=== PATIENT | female | born 1985 | race American Indian/Alaskan Native ===

== ENCOUNTER 2020-08-15 11:48 | Outpatient (CLI) | payer MEDICAID ==
[2020-08-15] MEDS ORDERED: LACTATED RINGERS 500 ML IV ONE (12:30)
[2020-08-15 12:56] VITALS: BP 126/71
[2020-08-15] MEDS ORDERED: TERBUTALINE 1 MG/1 ML INJ ONE (13:51)
[2020-08-15] MEDS ORDERED: TERBUTALINE 1 MG/1 ML INJ SUB-Q ONE (14:05)
== END 2020-08-15 15:00 | disposition home or self-care (01) ==
LOC: TRG 11:48 → APU 12:08 → TRG 15:00
PROVIDERS: ATTEND Obstetrics & Gynecology
DX: O26.893 Other specified pregnancy related conditions, third trimester (principal); M54.9 Dorsalgia, unspecified; O47.1 False labor at or after 37 completed weeks of gestation; O09.523 Supervision of elderly multigravida, third trimester; Z3A.37 37 weeks gestation of pregnancy
CPT/HCPCS: 59025; 96372; J3105

== ENCOUNTER 2020-08-19 00:09 | Outpatient (CLI) | payer MEDICAID ==
[2020-08-19 00:58] VITALS: BP 111/59
[2020-08-19 01:44] LABS: Bilirubin,Urine NEG (Negative); Blood,Urine NEG (Negative); Color,Urine Yellow (Yellow); Mucus,Urine FEW /HPF; Protein,Urine <15 mg/dL mg/dL (Negative); Urobilinogen,Urine < 2.0 mg/dL (<2.0); WBC,Urine < 1.0 /HPF (0.0-6.0)
== END 2020-08-19 02:10 | disposition home or self-care (01) ==
LOC: TRG 00:09 → APU 00:45 → TRG 02:10
PROVIDERS: ATTEND Obstetrics & Gynecology
DX: O62.9 Abnormality of forces of labor, unspecified (principal); R10.30 Lower abdominal pain, unspecified; Z3A.37 37 weeks gestation of pregnancy
CPT/HCPCS: 59025; 81001

== ENCOUNTER 2020-08-20 21:27 | Outpatient (CLI) | payer MEDICAID ==
[2020-08-20 21:51] VITALS: BP 135/83
[2020-08-20] MEDS ORDERED: hydrOXYzine PAMOATE 25 MG CAP PO ONE (23:49)
== END 2020-08-21 00:04 | disposition home or self-care (01) ==
LOC: TRG 21:27 → APU 21:33 → TRG 08-21 00:04
PROVIDERS: ATTEND Obstetrics & Gynecology
DX: O62.4 Hypertonic, incoordinate, and prolonged uterine contractions (principal); O26.893 Other specified pregnancy related conditions, third trimester; R10.9 Unspecified abdominal pain; M54.5 Low back pain; Z3A.37 37 weeks gestation of pregnancy
CPT/HCPCS: 59025; Q0177

== ENCOUNTER 2020-08-30 11:26 | Inpatient (IN) | payer MEDICAID ==
[2020-08-30] MEDS ORDERED: ePHEDrine SULFATE 50 MG/1 ML INJ IV PRN ×2 (11:59→15:48)
[2020-08-30] MEDS ORDERED: BUTORPHANOL 2 MG/1 ML INJ IV PRN (11:59)
[2020-08-30] MEDS ORDERED: LIDOCAINE (2%) 20 MG/1 ML VIAL 20 ML MDV INFILTRATI ONE (11:59)
[2020-08-30] MEDS ORDERED: MINERAL OIL 30 ML ORAL LIQD PO PRN (11:59)
[2020-08-30] MEDS ORDERED: AMPICILLIN/NS 2 GM/100 ML 2 GM/100 ML BAG IV ONE (11:59)
[2020-08-30] MEDS ORDERED: TERBUTALINE 1 MG/1 ML INJ SUB-Q PRN (11:59)
[2020-08-30] MEDS ORDERED: OXYTOCIN DRIP 30 UNITS/500 ML BAG IV SCH ×2 (12:00→19:00)
--- NOTE | 2020-08-30 12:40 | History and Physical Report ---
History of Present Illness Date of examination: 08/30/20 Chief complaint: Contractions and "my water broke at 9:00 this morning." History of present illness: Early entry to care at 11 1/7 weeks to [facility]. course complicated by Advanced Maternal Age, anemia (on PO Ferrous Sulfate), and Chlamydia (treated on 04/27; negative MOLLY). History of shoulder dystocia with first delivery; baby sustained dislocated shoulder. Second delivery was vaginal without complications. Past History Past Medical History: no pertinent history Past Surgical History: no surgical history ADVANCED MANAGER History: chlamydia, other (mycoplasma infection) Family/Genetic History: diabetes (Aunt), hypertension (Maternal Grandmother, Aunt), cancer (Lung - Maternal Grandfather) Social history: no significant social history - Obstetrical History Expected Date of Delivery: 09/04/20 Actual Gestation: 39 Week(s) 2 Day(s) : 3 Para: 2 Hx # Term Pregnancies: 2 Number of Pregnancies: 0 Spontaneous Abortions: 0 Induced : 0 Number of Living Children: 2 #1 Gender: Male year: 2,[birth year] Birthweight: 3.714 kg Method of Delivery: Vaginal Gestational age at delivery: 40 Complications: other (shoulder dystocia; baby sustained dislocated shoulder) #2 Infant Gender: Female year: 2,[birth year] Birthweight: 2.863 kg Method of Delivery: Vaginal Gestational age at delivery: 38 Complications: none Medications and Allergies Allergies Allergy/AdvReac Type Severity Reaction Status Date / Time No Known Allergies Allergy Unverified 08/15/20 12:29 Active Meds: Active Medications Butorphanol Tartrate (Butorphanol 2 Mg/1 Ml Inj) 2 mg IV Q2H PRN PRN Reason: Pain , Severe (7-10) Ephedrine Sulfate (Ephedrine Sulfate 50 Mg/1 Ml Inj) 10 mg IV Q2M PRN PRN Reason: Hypotension Oxytocin/Sodium Chloride (Pitocin/Ns 30 Unit/500ml) 30 units in 500 mls @ 2 mls/hr IV TITR JENI; Protocol Lactated Ringer's (Lactated Ringers) 1,000 mls @ 125 mls/hr IV DIRECT JENI Ampicillin Sodium (Ampicillin/Ns 2 Gm/100 Ml) 2 gm in 100 mls @ 100 mls/hr IV ONCE ONE; Protocol Stop: 08/30/20 12:58 Ampicillin Sodium (Ampicillin/Ns 1 Gm/50 Ml) 1 gm in 50 mls @ 100 mls/hr IV Q4H JENI; Protocol Mineral Oil (Mineral Oil 30 Ml Oral Liqd) 30 ml PO QHS PRN PRN Reason: Constipation Terbutaline Sulfate (Terbutaline 1 Mg/1 Ml Inj) 0.25 mg SUB-Q ONCE PRN PRN Reason: Hyperstimulation/Hypertonicity Review of Systems All systems: negative - Physical Exam Breasts: Positive: normal Cardiovascular: Regular rate Lungs: Positive: Clear to auscultation, Normal air movement Abdomen: Positive: normal appearance, soft Genitourinary (Female): Positive: normal external genitalia, normal perenium Vagina: Positive: normal moisture Uterus: Positive: enlarged Anus/Rectum: Positive: hemorrhoids Extremities: Positive: normal - Obstetrical FHR: category 1 Uterine Contraction Monitor Mode: External Cervical Dilatation: 4 (per RN exam. Pt reports SROM at 09:00 today at home. Nitrizine test positive per RN. Leaking a small amount of clear fluid on exam.) Cervical Effacement Percentage: 80 station: -2 Uterine Contraction Frequency (min): 3 Uterine Contraction Duration: 60 Uterine Contraction Pattern: Regular Uterine Tone Measurement Phase: Resting Uterine Contraction Intensity: Moderate Results All other labs normal. Assessment and Plan A: IUP at 39 2/7 weeks Category I tracing Active Labor AMA GBS positive P: Admit to L&D per routine orders Expectant Management Prepare for Epidural GBS Prophylaxis
[2020-08-30] MEDS: LACTATED RINGERS 1,000 ML IV SCH ×2 (12:52→14:07)
[2020-08-30 13:33] LABS: Hematocrit 35.7 % (30.3-42.9); Mean Corpuscular HGB Conc 34 % (30-34); Mean Corpuscular Volume 90 fl (79-97); Platelet Count 170 K/mm3 (140-440); Red Blood Count 3.97 M/mm3 (3.65-5.03); Red Cell Distribution Width 14.3 % (13.2-15.2)
--- NOTE | 2020-08-30 15:45 | Anesthesia Consultation ---
Anesthesia Consult and Med Hx Date of service: 08/30/20 - Airway Anesthetic Teeth Evaluation: Good ROM Head & Neck: Adequate Mental/Hyoid Distance: Adequate Mallampati Class: Class II Intubation Access Assessment: Good - Pulmonary Exam CTA: Yes - Cardiac Exam Cardiac Exam: RRR - Pre-Operative Health Status ASA Pre-Surgery Classification: ASA2 Proposed Anesthetic Plan: Epidural - Pulmonary Hx Smoking: No Hx Asthma: No Hx Respiratory Symptoms: No SOB: No COPD: No Home Oxygen Therapy: No Hx Pneumonia: No Hx Sleep Apnea: No - Cardiovascular System Hx Hypertension: No Hx Coronary Artery Disease: No Hx Heart Attack/AMI: No Hx Angina: No Hx Percutaneous Transluminal Coronary Angioplasty (PTCA): No Hx Cardia Arrhythmia: No Hx Pacemaker: No Hx Internal Defibrillator: No Hx Valvular Heart Disease: No Hx Heart Murmur: No Hx Peripheral Vascular Disease: No - Central Nervous System Hx Neuromuscular Disorder: No Hx Seizures: No CVA: No Hx Back Pain: No Hx Psychiatric Problems: No - Gastrointestinal Hx Ulcer: No Hx Gastroesophageal Reflux Disease: Yes - Endocrine Hx Renal Disease: No Hx End Stage Renal Disease: No Hx Cirrhosis: No Hx Liver Disease: No Hx Insulin Dependent Diabetes: No Hx Non-Insulin Dependent Diabetes: No Hx Thyroid Disease: No Hx Hypothyroidism: No Hx Hyperthyroidism: No - Hematic Hx Anemia: No Hx Sickle Cell Disease: No - Other Systems Hx Alcohol Use: No Hx Substance Use: No Hx Cancer: No Hx Obesity: Yes
[2020-08-30] MEDS ORDERED: NALOXONE 2 MG/2 ML INJ IV PRN (15:48)
[2020-08-30] MEDS ORDERED: fentaNYL-BUPIV 2 MCG/ML-0.125% 200 MCG/100 ML BAG EPIDURAL SCH (16:00)
[2020-08-30] MEDS ORDERED: AMPICILLIN/NS 1 GM/50 ML 1 GM/50 ML BAG IV SCH (16:00)
[2020-08-30] MEDS ORDERED: FAMOTIDINE 20 MG/2 ML INJ IV ONE ×2 (16:50→16:53)
[2020-08-30] MEDS ORDERED: METOCLOPRAMIDE 10 MG/2 ML INJ IV ONE (16:50)
[2020-08-30] MEDS ORDERED: BICITRA ORAL LIQD 30ML ONE (16:52)
[2020-08-30] MEDS ORDERED: METOCLOPRAMIDE 10 MG/2 ML INJ ONE (16:53)
[2020-08-30] MEDS ORDERED: LIDOCAINE 2%/EPINEPHRINE 1:200,000 VIAL (20 ML) INFILTRATI ONE (16:53)
[2020-08-30] MEDS ORDERED: ceFAZolin/Water 2 GM/20 ML 2 GM/20 ML SYRINGE IV ONE (16:53)
--- NOTE | 2020-08-30 16:58 | Progress Note ---
Assessment and Plan A: IUP at 39 2/7 weeks Category II tracing SROM AMA GBS positive P: Pitocin Discontinued O2 Mask Internals x 2 Knee-Chest Maternal Positioning Dr. Sampson notified of Distress Prepare for Delivery by Subjective - Subjective Date of service: 08/30/20 (Called to bedside by RN due to bradycardia) Interval history: Early entry to care at 11 1/7 weeks to [facility]. co urse complicated by Advanced Maternal Age, anemia (on PO Ferrous Sulfate), and Chlamydia (treated on 04/27; negative MOLLY). History of shoulder dystocia with first delivery; baby sustained dislocated shoulder. Second delivery was vaginal without complications. Patient reports: movement normal, other (Resting Well Under Epidural) Objective - Vital Signs Vital Signs: Vital Signs - 12hr 08/30/20 08/30/20 08/30/20 12:37 12:42 12:47 Temperature Pulse Rate 88 84 89 Respiratory Rate Blood Pressure Blood Pressure [Right] O2 Sat by Pulse 97 100 99 Oximetry 08/30/20 08/30/20 08/30/20 12:50 12:52 12:57 Temperature Pulse Rate 83 82 87 Respiratory Rate Blood Pressure 122/79 Blood Pressure [Right] O2 Sat by Pulse 100 99 Oximetry 08/30/20 08/30/20 08/30/20 13:02 13:04 13:07 Temperature Pulse Rate 88 94 H 82 Respiratory Rate Blood Pressure Blood Pressure [Right] O2 Sat by Pulse 98 92 98 Oximetry 08/30/20 08/30/20 08/30/20 13:09 13:12 13:15 Temperature Pulse Rate 89 94 H 87 Respiratory Rate Blood Pressure Blood Pressure [Right] O2 Sat by Pulse 94 100 86 Oximetry 08/30/20 08/30/20 08/30/20 13:16 13:17 13:21 Temperature 98.3 F Pulse Rate 83 83 91 H Respiratory 18 Rate Blood Pressure Blood Pressure 122/79 [Right] O2 Sat by Pulse 98 100 93 Oximetry 08/30/20 08/30/20 08/30/20 13:22 13:23 13:27 Temperature Pulse Rate 92 H 94 H Respiratory 18 Rate Blood Pressure Blood Pressure [Right] O2 Sat by Pulse 98 98 Oximetry 08/30/20 08/30/20 08/30/20 13:32 13:37 13:39 Temperature Pulse Rate 87 86 85 Respiratory Rate Blood Pressure Blood Pressure [Right] O2 Sat by Pulse 98 98 92 Oximetry 08/30/20 08/30/20 08/30/20 13:42 13:47 13:52 Temperature Pulse Rate 89 97 H 92 H Respiratory Rate Blood Pressure Blood Pressure [Right] O2 Sat by Pulse 98 99 97 Oximetry 08/30/20 08/30/20 08/30/20 13:57 14:02 14:07 Temperature Pulse Rate 89 88 78 Respiratory Rate Blood Pressure Blood Pressure [Right] O2 Sat by Pulse 98 99 98 Oximetry 08/30/20 08/30/20 08/30/20 14:08 14:12 14:14 Temperature Pulse Rate 83 92 H 88 Respiratory Rate Blood Pressure 106/60 Blood Pressure [Right] O2 Sat by Pulse 92 94 93 Oximetry 08/30/20 08/30/20 08/30/20 14:17 14:19 14:22 Temperature Pulse Rate 70 76 79 Respiratory Rate Blood Pressure Blood Pressure [Right] O2 Sat by Pulse 90 92 99 Oximetry 08/30/20 08/30/20 08/30/20 14:23 14:27 14:30 Temperature Pulse Rate 73 Respiratory 18 Rate Blood Pressure Blood Pressure [Right] O2 Sat by Pulse 98 86 Oximetry 08/30/20 08/30/20 08/30/20 14:32 14:37 14:38 Temperature Pulse Rate 68 68 67 Respiratory Rate Blood Pressure 127/82 Blood Pressure [Right] O2 Sat by Pulse 99 87 Oximetry 08/30/20 08/30/20 08/30/20 14:42 14:45 14:48 Temperature Pulse Rate 77 58 L 35 L Respiratory Rate Blood Pressure Blood Pressure [Right] O2 Sat by Pulse 99 84 84 Oximetry 08/30/20 08/30/20 08/30/20 14:51 14:54 14:56 Temperature Pulse Rate 47 L 86 Respiratory Rate Blood Pressure 119/76 Blood Pressure [Right] O2 Sat by Pulse 87 89 Oximetry 08/30/20 08/30/20 08/30/20 14:57 14:59 15:04 Temperature Pulse Rate 83 97 H 81 Respiratory Rate Blood Pressure Blood Pressure [Right] O2 Sat by Pulse 94 96 96 Oximetry 08/30/20 08/30/20 08/30/20 15:05 15:08 15:10 Temperature Pulse Rate 80 85 72 Respiratory Rate Blood Pressure 124/84 Blood Pressure [Right] O2 Sat by Pulse 91 96 Oximetry 08/30/20 08/30/20 08/30/20 15:11 15:15 15:17 Temperature Pulse Rate 72 101 H 120 H Respiratory Rate Blood Pressure 109/52 Blood Pressure [Right] O2 Sat by Pulse 94 99 93 Oximetry 08/30/20 08/30/20 08/30/20 15:20 15:24 15:25 Temperature Pulse Rate 89 104 H 111 H Respiratory Rate Blood Pressure Blood Pressure [Right] O2 Sat by Pulse 92 94 97 Oximetry 08/30/20 08/30/20 08/30/20 15:30 15:31 15:35 Temperature Pulse Rate 99 H 106 H 80 Respiratory Rate Blood Pressure Blood Pressure [Right] O2 Sat by Pulse 97 83 L 95 Oximetry 08/30/20 08/30/20 08/30/20 15:38 15:40 15:45 Temperature Pulse Rate 94 H 103 H 83 Respiratory Rate Blood Pressure 100/61 Blood Pressure [Right] O2 Sat by Pulse 100 98 Oximetry 08/30/20 08/30/20 08/30/20 15:48 15:50 15:53 Temperature Pulse Rate 94 H 48 L Respiratory Rate Blood Pressure Blood Pressure [Right] O2 Sat by Pulse 90 88 78 L Oximetry 08/30/20 08/30/20 08/30/20 15:55 16:00 16:05 Temperature Pulse Rate 97 H 109 H 75 Respiratory Rate Blood Pressure Blood Pressure [Right] O2 Sat by Pulse 91 93 100 Oximetry 08/30/20 08/30/20 08/30/20 16:08 16:10 16:14 Temperature Pulse Rate 89 99 H Respiratory Rate Blood Pressure 109/67 Blood Pressure [Right] O2 Sat by Pulse 94 98 84 Oximetry 08/30/20 08/30/20 08/30/20 16:17 16:20 16:23 Temperature Pulse Rate 95 H 74 Respiratory Rate Blood Pressure Blood Pressure [Right] O2 Sat by Pulse 82 L 93 87 Oximetry 08/30/20 08/30/20 08/30/20 16:26 16:30 16:36 Temperature Pulse Rate 84 60 141 H Respiratory Rate Blood Pressure Blood Pressure [Right] O2 Sat by Pulse 80 L 100 100 Oximetry 08/30/20 08/30/20 08/30/20 16:39 16:41 16:42 Temperature Pulse Rate 151 H 75 78 Respiratory Rate Blood Pressure 82/51 75/47 Blood Pressure [Right] O2 Sat by Pulse 100 Oximetry 08/30/20 16:46 Temperature Pulse Rate 100 H Respiratory Rate Blood Pressure Blood Pressure [Right] O2 Sat by Pulse 100 Oximetry - Exam Breasts: normal Abdomen: Present: normal appearance, soft Uterus: Present: normal, firm, fundal height above umbilicus FHR: category 2 Uterine Contraction Monitor Mode: Internal Cervical Dilatation: 4 (leaking a small amount of clear fluid) Cervical Effacement Percentage: 70 station: -2 Uterine Contraction Pattern: Regular Uterine Tone Measurement Phase: Resting Uterine Contraction Intensity: Moderate Extremities: normal - Labs Labs: Laboratory Results - last 24 hr 08/30/20 08/30/20 12:12 12:12 WBC 10.4 RBC 3.97 Hgb 12.0 Hct 35.7 MCV 90 MCH 30 MCHC 34 RDW 14.3 Plt Count 170 Blood Type A POSITIVE Antibody Screen Negative
[2020-08-30] MEDS ORDERED: ONDANSETRON 4 MG/2 ML INJ ONE (17:06)
[2020-08-30] MEDS ORDERED: PHENYLEPHRINE/NS 1,000 MCG/10 ML SYRINGE (OR USE) IV ONE ×2 (17:16→18:20)
[2020-08-30] MEDS ORDERED: ceFAZolin/STERILE WATER 2 GM/20 ML SYRINGE IV ONE (17:17)
[2020-08-30] MEDS ORDERED: WATER FOR IRRIG STERILE 1,500 ML BOTTLE IR ONE (17:29)
[2020-08-30] MEDS ORDERED: SODIUM CHLORIDE 0.9% IRR 1,500 ML BOTTLE IR ONE (17:29)
[2020-08-30] MEDS ORDERED: dexAMETHasone 20 MG/5 ML VIAL ONE (17:39)
[2020-08-30] MEDS ORDERED: BUPIVACAINE/PF (0.5%) 5 MG/1 ML 30 ML VIAL INFILTRATI ONE (17:39)
[2020-08-30] MEDS ORDERED: SODIUM CHLORIDE 0.9% 100 ML ONE (17:41)
[2020-08-30] MEDS ORDERED: KETOROLAC 30 MG/1 ML INJ ONE (18:04)
[2020-08-30] MEDS ORDERED: WITCH HAZEL/ GLYCERIN PAD TP PRN (18:14)
[2020-08-30] MEDS ORDERED: NALOXONE 0.4 MG/1 ML INJ IV PRN (18:14)
[2020-08-30] MEDS ORDERED: LANOLIN/ZINC/DIMETHICONE (LANSINOH) 7 GM TP PRN (18:14)
--- NOTE | 2020-08-30 18:14 | Procedure Note ---
OB Delivery Note - Delivery Date of Delivery: 08/30/20 Surgeon: LIV STEINBERG Estimated blood loss: other (800 cc) - Section Preop diagnosis: nonreassuring FHR tracing Postop diagnosis: same section procedure: section, primary low transverse Disposition: PACU Complications: none Narrative: Indication: 35-year-old at 39 weeks and 2 days with nonreassuring heart tracing remote from delivery. As result patient taken for primary low transverse . Prior to the surgery, patient was fully consented. Risks, benefits, and alternatives were all discussed with the patient including risk of bleeding, infection, and potential for injury. Patient understands and accepts these risks. Patient agrees to proceed with surgery. All questions were answered. Findings: Normal uterus, tubes and ovaries. Clear fluid. Tight nuchal cord x1. Procedure: Patient taken to the operating room and prepped and draped in the usual fashion. Pfannenstiel skin incision was made and carried down to the underlying fascia. Fascia was incised and the incision was extended bilaterally. Rectus fascia dissected off the rectus muscle both superiorly and inferiorly. Peritoneum identified tented up and entered. Peritoneal incision extended superiorly and inferiorly with good visualization of the bladder. Bladder blade was placed. Uterine incision was made and the incision was extended bilaterally. The baby was delivered in the typical vertex fashion. Baby bulb suctioned at the incision site and again after delivery. Cord was delayed clamped and cut and handed off to waiting team. The placenta was delivered spontaneously. The uterus was exteriorized and cleared of all clots and debris. Uterine incision closed with 0 Vicryl in a running locked fashion followed by a second imbricating layer of 0 Vicryl. Good hemostasis was noted. Her urine was clear. Uterus tubes and ovaries were returned to the abdominal cavity. Gutters were cleared of all clots and debris. Good hemostasis noted. Interceed placed over the uterine incision and over the lower uterine segment in the midline. Attention was turned to the rectus fascia which was reapproximated with 0 Vicryl in a running fashion. Subcutaneous tissue was irrigated and reapproximated with 2-0 Vicryl in a running fashion. Skin was closed with 4-0 Vicryl in a subcuticular fashion followed by Dermabond. The procedure was concluded at this point and the patient tolerated the pr ocedure well. All instrument and lap counts were correct. - Infant A at 1 minute: 9 at 5 minutes: 9 Gender: Female
[2020-08-30] MEDS ORDERED: ONDANSETRON 4 MG/2 ML INJ IV PRN (18:15)
[2020-08-30] MEDS ORDERED: MAGNESIUM HYDROXIDE (MOM) ORAL LIQD UDC PO PRN (18:15)
[2020-08-30] MEDS ORDERED: SENNOSIDES 8.6 MG TAB PO PRN (18:15)
[2020-08-30] MEDS ORDERED: SIMETHICONE 80 MG CHEW TAB PO PRN (18:15)
--- NOTE | 2020-08-30 18:33 | Procedure Note ---
OB Delivery Note - Delivery Date of Delivery: 08/30/20 Surgeon: LIV STEINBERG Estimated blood loss: other (800 cc) - Section Preop diagnosis: nonreassuring FHR tracing Postop diagnosis: same section procedure: section, primary low transverse Disposition: PACU Complications: none - A at 1 minute: 9 at 5 minutes: 9 Infant Gender: Female
--- NOTE | 2020-08-30 18:50 | Anesthesia Day of Surgery ---
Anesthesia Day of Surgery - Day of Surgery Patient Examined: Yes Patient H&P Reviewed: Yes Patient is NPO: Yes Beta Blockers: No Cardiac Clearance: No Pulmonary Clearance: No Brendon's Test: N/A
--- NOTE | 2020-08-30 18:52 | Post Anesthesia Evaluation ---
- Post Anesthesia Evaluation Patient Participated: Yes Airway Patent: Yes Stable Respiratory Function: Yes Nausea/Vomiting: No Temp > 96.8F: Yes Pain Manageable: Yes Adequeate Hydration: Yes Anesthesia Complications: No Block Receding Appropriately: Yes Patient on Ventilator: No
--- NOTE | 2020-08-30 18:52 | Progress Note ---
Subjective Date of service: 08/30/20 Principal diagnosis: Norman Block Interval history: Patient consented for TAP block for post surgical pain management. Patient identified, monitors placed, and time out performed. TAP identified bilaterally via ultrasound. Skin prepped bilaterally with [chlorhexidine] and [22g stimuplex] needle advanced to the TAP. [Marcaine 0.22% 35ml] injected under ultrasound guidance on the [left] side. [Marcaine 0.22% 35ml] injected under ultrasound guidance on the [right] side. Negative aspiration every 5mL, No change in heart rate or rhythm. Patient tolerated the procedure well. No apparent complications seen. Objective - Constitutional Vitals: Vital Signs - 12hr 08/30/20 08/30/20 08/30/20 12:37 12:42 12:47 Temperature Pulse Rate 88 84 89 Respiratory Rate Blood Pressure Blood Pressure [Right] O2 Sat by Pulse 97 100 99 Oximetry 08/30/20 08/30/20 08/30/20 12:50 12:52 12:57 Temperature Pulse Rate 83 82 87 Respiratory Rate Blood Pressure 122/79 Blood Pressure [Right] O2 Sat by Pulse 100 99 Oximetry 08/30/20 08/30/20 08/30/20 13:02 13:04 13:07 Temperature Pulse Rate 88 94 H 82 Respiratory Rate Blood Pressure Blood Pressure [Right] O2 Sat by Pulse 98 92 98 Oximetry 08/30/20 08/30/20 08/30/20 13:09 13:12 13:15 Temperature Pulse Rate 89 94 H 87 Respiratory Rate Blood Pressure Blood Pressure [Right] O2 Sat by Pulse 94 100 86 Oximetry 08/30/20 08/30/20 08/30/20 13:16 13:17 13:21 Temperature 98.3 F Pulse Rate 83 83 91 H Respiratory 18 Rate Blood Pressure Blood Pressure 122/79 [Right] O2 Sat by Pulse 98 100 93 Oximetry 08/30/20 08/30/20 08/30/20 13:22 13:23 13:27 Temperature Pulse Rate 92 H 94 H Respiratory 18 Rate Blood Pressure Blood Pressure [Right] O2 Sat by Pulse 98 98 Oximetry 08/30/20 08/30/20 08/30/20 13:32 13:37 13:39 Temperature Pulse Rate 87 86 85 Respiratory Rate Blood Pressure Blood Pressure [Right] O2 Sat by Pulse 98 98 92 Oximetry 08/30/20 08/30/20 08/30/20 13:42 13:47 13:52 Temperature Pulse Rate 89 97 H 92 H Respiratory Rate Blood Pressure Blood Pressure [Right] O2 Sat by Pulse 98 99 97 Oximetry 08/30/20 08/30/20 08/30/20 13:57 14:02 14:07 Temperature Pulse Rate 89 88 78 Respiratory Rate Blood Pressure Blood Pressure [Right] O2 Sat by Pulse 98 99 98 Oximetry 08/30/20 08/30/20 08/30/20 14:08 14:12 14:14 Temperature Pulse Rate 83 92 H 88 Respiratory Rate Blood Pressure 106/60 Blood Pressure [Right] O2 Sat by Pulse 92 94 93 Oximetry 08/30/20 08/30/20 08/30/20 14:17 14:19 14:22 Temperature Pulse Rate 70 76 79 Respiratory Rate Blood Pressure Blood Pressure [Right] O2 Sat by Pulse 90 92 99 Oximetry 08/30/20 08/30/20 08/30/20 14:23 14:27 14:30 Temperature Pulse Rate 73 Respiratory 18 Rate Blood Pressure Blood Pressure [Right] O2 Sat by Pulse 98 86 Oximetry 08/30/20 08/30/20 08/30/20 14:32 14:37 14:38 Temperature Pulse Rate 68 68 67 Respiratory Rate Blood Pressure 127/82 Blood Pressure [Right] O2 Sat by Pulse 99 87 Oximetry 08/30/20 08/30/20 08/30/20 14:42 14:45 14:48 Temperature Pulse Rate 77 58 L 35 L Respiratory Rate Blood Pressure Blood Pressure [Right] O2 Sat by Pulse 99 84 84 Oximetry 08/30/20 08/30/20 08/30/20 14:51 14:54 14:56 Temperature Pulse Rate 47 L 86 Respiratory Rate Blood Pressure 119/76 Blood Pressure [Right] O2 Sat by Pulse 87 89 Oximetry 08/30/20 08/30/20 08/30/20 14:57 14:59 15:04 Temperature Pulse Rate 83 97 H 81 Respiratory Rate Blood Pressure Blood Pressure [Right] O2 Sat by Pulse 94 96 96 Oximetry 08/30/20 08/30/20 08/30/20 15:05 15:08 15:10 Temperature Pulse Rate 80 85 72 Respiratory Rate Blood Pressure 124/84 Blood Pressure [Right] O2 Sat by Pulse 91 96 Oximetry 08/30/20 08/30/20 08/30/20 15:11 15:15 15:17 Temperature Pulse Rate 72 101 H 120 H Respiratory Rate Blood Pressure 109/52 Blood Pressure [Right] O2 Sat by Pulse 94 99 93 Oximetry 08/30/20 08/30/20 08/30/20 15:20 15:24 15:25 Temperature Pulse Rate 89 104 H 111 H Respiratory Rate Blood Pressure Blood Pressure [Right] O2 Sat by Pulse 92 94 97 Oximetry 08/30/20 08/30/20 08/30/20 15:30 15:31 15:35 Temperature Pulse Rate 99 H 106 H 80 Respiratory Rate Blood Pressure Blood Pressure [Right] O2 Sat by Pulse 97 83 L 95 Oximetry 08/30/20 08/30/20 08/30/20 15:38 15:40 15:45 Temperature Pulse Rate 94 H 103 H 83 Respiratory Rate Blood Pressure 100/61 Blood Pressure [Right] O2 Sat by Pulse 100 98 Oximetry 08/30/20 08/30/20 08/30/20 15:48 15:50 15:53 Temperature Pulse Rate 94 H 48 L Respiratory Rate Blood Pressure Blood Pressure [Right] O2 Sat by Pulse 90 88 78 L Oximetry 08/30/20 08/30/20 08/30/20 15:55 16:00 16:05 Temperature Pulse Rate 97 H 109 H 75 Respiratory Rate Blood Pressure Blood Pressure [Right] O2 Sat by Pulse 91 93 100 Oximetry 08/30/20 08/30/20 08/30/20 16:08 16:10 16:14 Temperature Pulse Rate 89 99 H Respiratory Rate Blood Pressure 109/67 Blood Pressure [Right] O2 Sat by Pulse 94 98 84 Oximetry 08/30/20 08/30/20 08/30/20 16:17 16:20 16:23 Temperature Pulse Rate 95 H 74 Respiratory Rate Blood Pressure Blood Pressure [Right] O2 Sat by Pulse 82 L 93 87 Oximetry 08/30/20 08/30/20 08/30/20 16:26 16:30 16:36 Temperature Pulse Rate 84 60 141 H Respiratory Rate Blood Pressure Blood Pressure [Right] O2 Sat by Pulse 80 L 100 100 Oximetry 08/30/20 08/30/20 08/30/20 16:39 16:41 16:42 Temperature Pulse Rate 151 H 75 78 Respiratory Rate Blood Pressure 82/51 75/47 Blood Pressure [Right] O2 Sat by Pulse 100 Oximetry 08/30/20 08/30/20 08/30/20 16:46 16:51 16:55 Temperature Pulse Rate 100 H 101 H 85 Respiratory Rate Blood Pressure Blood Pressure [Right] O2 Sat by Pulse 100 99 70 L Oximetry 08/30/20 08/30/20 08/30/20 16:56 18:29 18:45 Temperature 97.3 F L Pulse Rate 94 H 120 H 123 H Respiratory 10 L 13 Rate Blood Pressure 119/86 105/63 Blood Pressure [Right] O2 Sat by Pulse 99 100 100 Oximetry - Labs CBC & Chem 7: 08/30/20 12:12
[2020-08-30 21:11] LABS: Hematocrit 35.2 % (30.3-42.9); Hemoglobin 11.6 gm/dl (10.1-14.3); Mean Corpuscular HGB Conc 33 % (30-34); Mean Corpuscular Volume 91 fl (79-97); Platelet Count 143 K/mm3 (140-440); Red Blood Count 3.88 M/mm3 (3.65-5.03); Red Cell Distribution Width 14.7 % (13.2-15.2)
[2020-08-30] MEDS: HYDROmorphone 2 MG/1 ML INJ IV PRN (21:58)
[2020-08-30 22:02] LABS: RBC Morphology Normal; Total Cells Counted 100
[2020-08-31] MEDS: LACTATED RINGERS 1,000 ML IV SCH (00:10)
[2020-08-31] MEDS: KETOROLAC 30 MG/1 ML INJ IV PRN ×2 (00:10→06:38)
[2020-08-31] MEDS: HYDROmorphone 2 MG/1 ML INJ IV PRN ×2 (02:07→05:58)
[2020-08-31 08:34] LABS: Hematocrit 29.4 % (30.3-42.9)
[2020-08-31] MEDS: oxyCODONE /ACETAMINOPHEN 5-325MG TAB PO PRN ×3 (09:28→23:42)
--- NOTE | 2020-08-31 09:43 | Progress Note ---
Assessment and Plan A: S/P Primary LTCS p: Continue routine pp care Encourage ambulation D/C home within 24-48 hrs if stable Subjective - Subjective Date of service: 08/31/20 Principal diagnosis: Norman Block Patient reports: voiding normally, pain well controlled, ambulating normally, other (hasn't passed gas yet) : doing well, bottle feeding Objective - Vital Signs Latest vital signs: Vital Signs Temp Pulse Resp BP BP Pulse Ox 08/31/20 08:11 98.1 F 80 18 120/75 99 08/31/20 04:45 97.6 F 72 20 110/62 99 08/31/20 02:11 97.9 F 78 20 122/78 100 08/30/20 21:12 98.0 F 79 18 125/58 100 08/30/20 19:05 85 10 L 94/69 99 08/30/20 18:50 120 H 11 L 104/75 99 08/30/20 18:45 123 H 13 105/63 100 08/30/20 18:29 97.3 F L 120 H 10 L 119/86 100 08/30/20 16:56 94 H 99 08/30/20 16:55 85 70 L 08/30/20 16:51 101 H 99 08/30/20 16:46 100 H 100 08/30/20 16:42 78 75/47 08/30/20 16:41 75 100 08/30/20 16:39 151 H 82/51 08/30/20 16:36 141 H 100 08/30/20 16:30 60 100 08/30/20 16:26 84 80 L 08/30/20 16:23 74 87 08/30/20 16:20 93 08/30/20 16:17 95 H 82 L 08/30/20 16:14 84 08/30/20 16:10 99 H 98 08/30/20 16:08 89 109/67 94 08/30/20 16:05 75 100 08/30/20 16:00 109 H 93 08/30/20 15:55 97 H 91 08/30/20 15:53 78 L 08/30/20 15:50 48 L 88 08/30/20 15:48 94 H 90 08/30/20 15:45 83 98 08/30/20 15:40 103 H 100 08/30/20 15:38 94 H 100/61 08/30/20 15:35 80 95 08/30/20 15:31 106 H 83 L 08/30/20 15:30 99 H 97 08/30/20 15:25 111 H 97 08/30/20 15:24 104 H 94 08/30/20 15:20 89 92 08/30/20 15:17 120 H 109/52 93 08/30/20 15:15 101 H 99 08/30/20 15:11 72 94 08/30/20 15:10 72 96 08/30/20 15:08 85 124/84 08/30/20 15:05 80 91 08/30/20 15:04 81 96 08/30/20 14:59 97 H 96 08/30/20 14:57 83 94 08/30/20 14:56 86 119/76 08/30/20 14:54 47 L 89 08/30/20 14:51 87 08/30/20 14:48 35 L 84 08/30/20 14:45 58 L 84 08/30/20 14:42 77 99 08/30/20 14:38 67 127/82 08/30/20 14:37 68 87 08/30/20 14:32 68 99 08/30/20 14:30 86 08/30/20 14:27 73 98 08/30/20 14:23 18 08/30/20 14:22 79 99 08/30/20 14:19 76 92 08/30/20 14:17 70 90 08/30/20 14:14 88 93 08/30/20 14:12 92 H 94 08/30/20 14:08 83 106/60 92 08/30/20 14:07 78 98 08/30/20 14:02 88 99 08/30/20 13:57 89 98 08/30/20 13:52 92 H 97 08/30/20 13:47 97 H 99 08/30/20 13:42 89 98 08/30/20 13:39 85 92 08/30/20 13:37 86 98 08/30/20 13:32 87 98 08/30/20 13:27 94 H 98 08/30/20 13:23 18 08/30/20 13:22 92 H 98 08/30/20 13:21 91 H 93 08/30/20 13:17 83 100 08/30/20 13:16 98.3 F 83 18 122/79 98 08/30/20 13:15 87 86 08/30/20 13:12 94 H 100 08/30/20 13:09 89 94 08/30/20 13:07 82 98 08/30/20 13:04 94 H 92 08/30/20 13:02 88 98 08/30/20 12:57 87 99 08/30/20 12:52 82 100 08/30/20 12:50 83 122/79 08/30/20 12:47 89 99 08/30/20 12:42 84 100 08/30/20 12:37 88 97 Intake and Output 08/30/20 08/31/20 08/31/20 22:59 06:59 14:59 Intake Total 3200 480 120 Output Total 650 350 Balance 2550 130 120 Intake: IV 3200 Lactated Ringers 1,000 ml 1000 @ 125 mls/hr IV DIRECT JENI Rx#:[id number] Oral 480 120 Output: Urine 650 350 Indwelling Catheter 350 Other: Total, Intake Amount 240 120 Total, Output Amount 350 - Exam Breasts: Present: normal Abdomen: Present: normal appearance, soft, normal bowel sounds Vulva: both: normal Uterus: Present: normal, firm, fundal height below umbilicus Extremities: Present: normal Incision: Present: normal, dry, intact, dressed - Labs Labs: Abnormal lab results 08/30/20 08/31/20 Range/Units 20:50 07:41 WBC 17.4 H (4.5-11.0) K/mm3 Hgb 10.0 L (10.1-14.3) gm/dl Hct 29.4 L (30.3-42.9) % Seg Neuts % (Manual) 91.0 H (40.0-70.0) % Lymphocytes % (Manual) 5.0 L (13.4-35.0) % Seg Neutrophils # Man 15.8 H (1.8-7.7) K/mm3 Lymphocytes # (Manual) 0.9 L (1.2-5.4) K/mm3
[2020-08-31] MEDS ORDERED: IBUPROFEN 800 MG TAB ONE (13:49)
[2020-08-31] MEDS: IBUPROFEN 800 MG TAB PO PRN ×2 (13:53→21:04)
[2020-09-01] MEDS: oxyCODONE /ACETAMINOPHEN 5-325MG TAB PO PRN (05:31)
[2020-09-01] MEDS: IBUPROFEN 800 MG TAB PO PRN (09:15)
[2020-09-01 09:25] VITALS: BP 126/85
[2020-09-01] MEDS ORDERED: oxyCODONE /ACETAMINOPHEN 5-325MG TAB PO PRN (09:31)
--- NOTE | 2020-09-01 09:57 | Discharge Summary ---
Providers - Providers Date of Admission: 08/30/20 11:59 Date of discharge: 09/01/20 Attending physician: LIV STEINBERG Primary care physician: THOMAS SCHMITT Hospitalization Reason for admission: rupture of membranes Delivery: Procedure: primary low transverse Episiotomy: none Laceration: none Incision: dry, intact Other procedures: none complications: none Discharge diagnosis: IUP at term delivered baby: female Hospital course: See admission H & P; OB operative summary and PP progress notes Condition at discharge: Stable Disposition: DC-01 TO HOME OR SELFCARE - Discharge Diagnoses (1) Status post primary low transverse section Status: Acute (2) Anemia Status: Acute Qualifiers: Anemia type: other cause Other causes of anemia: acute posthemorrhagic Qualified Code(s): D62 - Acute posthemorrhagic anemia Comment: Asymptomatic (3) COVID-19 determined by clinical diagnostic criteria Status: Acute Plan - Discharge Medications Prescriptions: Ibuprofen [Motrin 800 MG tab] 800 mg PO Q6H PRN #30 tablet PRN Reason: Pain, Mild (1-3) oxyCODONE /ACETAMINOPHEN [Percocet 5/325 mg] 1 tab PO Q6H PRN #30 tablet PRN Reason: Pain, Moderate (4-6) - Provider Discharge Summary Activity: routine, no sex for 6 weeks, no heavy lifting 4 weeks, no strenuous exercise Diet: other (Iron rich diet) Instructions: routine Additional instructions: [] Smoking cessation referral if applicable(refer to patient education folder for contact #) [] Refer to [facility] Booklet Call your doctor immediately for: * Fever > 100.5 * Heavy vaginal bleeding ( >1 pad per hour) * Severe persistent headache * Shortness of breath * Reddened, hot, painful area to leg or breast * Drainage or odor from incision. * Keep incision clean and dry at all times and follow doctor's instructions regarding bathing/showering * Maintain quarantine status for 14 days following discharge - Follow up plan Follow up: LIV STEINBERG MD [Staff Physician] - 14 Days
== END 2020-09-01 14:55 | disposition home or self-care (01) | DRG 765 ==
LOC: TRG 11:26 → APU 11:44 → LD 11:59 → TRG 17:00 → OB 20:21
PROVIDERS: ADMIT Obstetrics & Gynecology; ATTEND Obstetrics & Gynecology
PROC: 10D00Z1 Extraction of Products of Conception, Low, Open Approach (ICD-10-PCS; principal; 2020-08-30)
DX: O76 Abnormality in fetal heart rate and rhythm complicating labor and delivery (principal); U07.1 COVID-19; D62 Acute posthemorrhagic anemia; O99.02 Anemia complicating childbirth; O99.824 Streptococcus B carrier state complicating childbirth; O98.52 Other viral diseases complicating childbirth; Z83.3 Family history of diabetes mellitus; Z82.49 Family history of ischemic heart disease and other diseases of the circulatory system; Z80.1 Family history of malignant neoplasm of trachea, bronchus and lung; Z3A.39 39 weeks gestation of pregnancy; Z37.0 Single live birth
CPT/HCPCS: 36415; 85007; 85014; 85018; 85025; 85027; 86850; 86900; 86901; G0378; C1765; J0290; J0595; J0690; J1100; J1170; J1885; J2370; J2405; J2590; J2765; J7120; U0003